=== PATIENT | female | born 1995 | race Caucasian/White ===

== ENCOUNTER 2016-08-23 20:38 | Emergency (ER) | payer OTHER ==
[2016-08-23] MEDS ORDERED: CLINDAMYCIN 150 MG CAP As Ordered ONE (21:45)
[2016-08-23] MEDS ORDERED: IBUPROFEN 600 MG TAB As Ordered ONE (21:45)
--- NOTE | 2016-08-23 22:00 | EDDOCDS ---
Physician Documentation [facility] Name: Ayala Núñez Age: 21 yrs Sex: Female : 1995 Arrival Date: 08/23/2016 Time: 20:38 Bed TR7 Private MD: Naida [facility] Disposition: 08/23/16 21:42 Discharged to Home/Self Care. Impression: Periapical abscess without sinus, Dental caries. - Condition is Stable. - Discharge Instructions: Dental Abscess, Dental Pain. - Prescriptions for Clindamycin HCl 300 mg Oral Capsule - take 1 capsule by ORAL route every 6 hours; 39 capsule. Ibuprofen 600 mg Oral Tablet - take 1 tablet by ORAL route every 6 hours As needed take with food; 30 tablet. - Medication Reconciliation, Local Pharmacy Hours, Dental Referral List form. - Follow up: Emergency Department; When: As needed; Reason: Fever > 102F, Worsening of conditions. Follow up: Private Physician; When: Call to arrange an appointment; Reason: Recheck today's complaints. - Problem is new. - Symptoms are unchanged. Historical: - Allergies: Amoxicillin; - Home Meds: 1. none - PMHx: none; - PSHx: none; - Social history: Smoking status: Patient uses tobacco products, current every day smoker. No barriers to communication noted, The patient speaks fluent Faroese, Speaks appropriately for age. - Family history: Not pertinent. - : The pt / caregiver states he / she is not on anticoagulants. Home medication list is obtained from the patient. - Exposure Risk Screening:: None identified. 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 3 in. (160.02 cm) (R); Pain 4/10; 21:46 BP 107 / 65; Pulse 54; Resp 20; Temp 99.1(TE); Pulse Ox 99% on R/A; Pain 0/10; jmv 20:40 Body Mass Index 19.49 (49.90 kg, 160.02 cm) gr2 MDM: 21:41 Ibuprofen 600 mg PO once ordered. ar2 21:41 Clindamycin 300 mg PO once ordered. ar2 Administered Medications: 21:50 Drug: Ibuprofen 600 mg [ibuprofen 600 mg tablet (1 tabs)] Route: PO; jf3 21:51 Drug: Clindamycin 300 mg [clindamycin 150 mg capsule (2 caps)] Route: PO; jf3 Signatures: Leopoldo Horvath PA-C PA-C ar2 Nasreen Anand RN RN dsf Elver Reyes RN RN jf3 MTDD
--- NOTE | 2016-08-23 22:00 | EDDOCDS ---
Nurse's Notes [facility] Name: Ayala Núñez Age: 21 yrs Sex: Female : 1995 Arrival Date: 08/23/2016 Time: 20:38 Bed TR7 Private MD: GABBY Pasacl Diagnosis: Periapical abscess without sinus;Dental caries Presentation: 08/23 20:50 Presenting complaint: Patient states: noticed a pimple on right gum line 2 days ago and dsf her jaw started to hurt yesterday. Adult Sepsis Screening: The patient does not have new or worsening altered mentation. Patient's respiratory rate is less than 22. Systolic blood pressure is greater than 100. Patient has a qSOFA score of 0- Negative Sepsis Screen. Suicide/Homicide risk assessment- the patient denies having any suicidal and/or homicidal ideations and does not present with any other emotional, behavioral or mental health complaints. Status: The patient is a dependent. Transition of care: patient was not received from another setting of care. 20:50 Acuity: MARGY Level 5 dsf 20:50 Method Of Arrival: Walkin/Carried/Asstd dsf Triage Assessment: 20:51 General: Appears in no apparent distress, Behavior is appropriate for age, cooperative. dsf Pain: Denies pain. HIV screening NA for this visit Offered previously. 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 none - PMHx: none; - PSHx: none; - Social history: Smoking status: Patient uses tobacco products, current every day smoker. No barriers to communication noted, The patient speaks fluent French, Speaks appropriately for age. - Family history: Not pertinent. - : The pt / caregiver states he / she is not on anticoagulants. Home medication list is obtained from the patient. - Exposure Risk Screening:: None identified. Screenin:55 Screening information is obtained from the patient. Fall risk: No risks identified. jf3 Assistance ADL's: requires no assistance with activities of daily living. Abuse/DV Screen: The patient / caregiver reports he/she is: not in a situation that causes fear, pain or injury. Nutritional screening: No deficits noted. Advance Directives: Currently, there is no health care proxy. There is no active DNR order. home support is adequate. Assessment: 21:55 General: Appears in no apparent distress, comfortable, Behavior is cooperative. Pain: jf3 Denies pain. Neurological: Level of Consciousness is awake, alert, Oriented to person, place, time. Cardiovascular: Capillary refill < 3 seconds. Respiratory: Airway is patent Respiratory effort is even, unlabored, Respiratory pattern is regular, symmetrical. Derm: Skin is pink, warm & dry. Vital Signs: 20:40 BP 123 / 66; Pulse 82; Resp 18 S; Temp 98.4(O); Pulse Ox 100% on R/A; Weight 49.9 kg gr2 (R); Height 5 ft. 3 in. (160.02 cm) (R); Pain 4/10; 21:46 BP 107 / 65; Pulse 54; Resp 20; Temp 99.1(TE); Pulse Ox 99% on R/A; Pain 0/10; jmv 20:40 Body Mass Index 19.49 (49.90 kg, 160.02 cm) gr2 Vitals: 20:40 Log In Time: August 23, 2016 at 20:40. gr2 ED Course: 20:40 Patient visited by Day Reeves. gr2 20:40 Naida [facility] is Private Physician. gr2 20:40 Patient moved to Waiting gr2 20:42 Patient visited by Day Reeves. gr2 20:42 Patient moved to Pre RCE gr2 20:51 Triage Initiated dsf 21:32 Patient moved to Triage 1 jf3 21:35 [facility] ar2 21:35 Darwin Rosado DO is Attending Physician. ar2 21:35 Patient visited by Leopoldo Horvath PA-C. ar2 21:46 Patient visited by Juvenal Harris PCA. jmv 21:55 The patient / caregiver is instructed regarding the plan of care and ED course. jf3 21:55 No IV's were initiated during this patient's visit. No procedures done that require jf3 assistance. 21:56 Patient moved to TR7 cz Administered Medications: 21:50 Drug: Ibuprofen 600 mg [ibuprofen 600 mg tablet (1 tabs)] Route: PO; jf3 21:51 Drug: Clindamycin 300 mg [clindamycin 150 mg capsule (2 caps)] Route: PO; jf3 Order Results: There are currently no results for this order. Outcome: 21:42 Discharge ordered by Provider. ar2 21:55 Discharge Assessment: Patient awake, alert and oriented x 3. No cognitive and/or jf3 functional deficits noted. Patient verbalized understanding of disposition instructions. patient administered narcotics - no. The following High Risk Discharge criteria are identified: None. Discharged to home ambulatory, with significant other. Condition: stable. Discharge instructions given to patient, significant other, Instructed on discharge instructions, follow up and referral plans. medication usage, Demonstrated understanding of instructions, medications, Pt was receptive of discharge instructions/ teaching. No special radiology studies were completed. Property :Personal belongings accompany Pt. 22:00 Patient left the ED. jf3 Signatures: Cristian Mcleod, RN RN Leopoldo Fields PA-C PA-C ar2 Nasreen Anand,RN RN christianof Day Reeves2 Elver Reyes RN RN jf3 Juvenal Harris, [employer] jmv MTDYessi
--- NOTE | 2016-08-26 11:52 | EDDOCDS ---
Physician Documentation [facility] Name: Ayala Núñez Age: 21 yrs Sex: Female : 1995 Arrival Date: 08/23/2016 Time: 20:38 Bed TR7 Private MD: Naida [facility] Disposition: 08/23/16 21:42 Discharged to Home/Self Care. Impression: Periapical abscess without sinus, Dental caries. - Condition is Stable. - Discharge Instructions: Dental Abscess, Dental Pain. - Prescriptions for Clindamycin HCl 300 mg Oral Capsule - take 1 capsule by ORAL route every 6 hours; 39 capsule. Ibuprofen 600 mg Oral Tablet - take 1 tablet by ORAL route every 6 hours As needed take with food; 30 tablet. - Medication Reconciliation, Local Pharmacy Hours, Dental Referral List form. - Follow up: Emergency Department; When: As needed; Reason: Fever > 102F, Worsening of conditions. Follow up: Private Physician; When: Call to arrange an appointment; Reason: Recheck today's complaints. - Problem is new. - Symptoms are unchanged. Historical: - Allergies: Amoxicillin; - Home Meds: 1. none - PMHx: none; - PSHx: none; - Social history: Smoking status: Patient uses tobacco products, current every day smoker. No barriers to communication noted, The patient speaks fluent Latvian, Speaks appropriately for age. - Family history: Not pertinent. - : The pt / caregiver states he / she is not on anticoagulants. Home medication list is obtained from the patient. - Exposure Risk Screening:: None identified. 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 3 in. (160.02 cm) (R); Pain 4/10; 21:46 BP 107 / 65; Pulse 54; Resp 20; Temp 99.1(TE); Pulse Ox 99% on R/A; Pain 0/10; jmv 20:40 Body Mass Index 19.49 (49.90 kg, 160.02 cm) gr2 MDM: 21:41 Ibuprofen 600 mg PO once ordered. ar2 21:41 Clindamycin 300 mg PO once ordered. ar2 : [facility] Payment Agreement was scanned into [employer] and attached to record. gj : Financial registration complete. gjb 08/24 08: T-Sheet-- Draft Copy was scanned into [employer] and attached to record. se Administered Medications: 08/23 21:50 Drug: Ibuprofen 600 mg [ibuprofen 600 mg tablet (1 tabs)] Route: PO; jf3 21:51 Drug: Clindamycin 300 mg [clindamycin 150 mg capsule (2 caps)] Route: PO; jf3 Signatures: Leopoldo Horvath PA-C PA-C ar2 Nasreen Anand RN RN Elver Godinez RN RN augustin3 Mirella White Sarah [facility] The chart was reviewed and I authenticate all verbal orders and agree with the evaluation and treatment provided.Attachments: : [facility] Payment Agreement b 08/24 08:41 T-Sheet-- Draft Copy [facility] Chart Complete MTDD
--- NOTE | 2016-08-26 11:52 | EDDOCDS ---
Physician Documentation [facility] Name: Ayala Núñez Age: 21 yrs Sex: Female : 1995 Arrival Date: 08/23/2016 Time: 20:38 Bed TR7 Private MD: Naida [facility] Disposition: 08/23/16 21:42 Discharged to Home/Self Care. Impression: Periapical abscess without sinus, Dental caries. - Condition is Stable. - Discharge Instructions: Dental Abscess, Dental Pain. - Prescriptions for Clindamycin HCl 300 mg Oral Capsule - take 1 capsule by ORAL route every 6 hours; 39 capsule. Ibuprofen 600 mg Oral Tablet - take 1 tablet by ORAL route every 6 hours As needed take with food; 30 tablet. - Medication Reconciliation, Local Pharmacy Hours, Dental Referral List form. - Follow up: Emergency Department; When: As needed; Reason: Fever > 102F, Worsening of conditions. Follow up: Private Physician; When: Call to arrange an appointment; Reason: Recheck today's complaints. - Problem is new. - Symptoms are unchanged. Historical: - Allergies: Amoxicillin; - Home Meds: 1. none - PMHx: none; - PSHx: none; - Social history: Smoking status: Patient uses tobacco products, current every day smoker. No barriers to communication noted, The patient speaks fluent Romanian, Speaks appropriately for age. - Family history: Not pertinent. - : The pt / caregiver states he / she is not on anticoagulants. Home medication list is obtained from the patient. - Exposure Risk Screening:: None identified. 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 3 in. (160.02 cm) (R); Pain 4/10; 21:46 BP 107 / 65; Pulse 54; Resp 20; Temp 99.1(TE); Pulse Ox 99% on R/A; Pain 0/10; jmv 20:40 Body Mass Index 19.49 (49.90 kg, 160.02 cm) gr2 MDM: 21:41 Ibuprofen 600 mg PO once ordered. ar2 21:41 Clindamycin 300 mg PO once ordered. ar2 : [facility] Payment Agreement was scanned into [employer] and attached to record. gj : Financial registration complete. gjb 08/24 08: T-Sheet-- Draft Copy was scanned into [employer] and attached to record. se Administered Medications: 08/23 21:50 Drug: Ibuprofen 600 mg [ibuprofen 600 mg tablet (1 tabs)] Route: PO; jf3 21:51 Drug: Clindamycin 300 mg [clindamycin 150 mg capsule (2 caps)] Route: PO; jf3 Signatures: Leopoldo Horvath PA-C PA-C ar2 Nasreen Anand RN RN Elver Godinez RN RN augustin3 Mirella White Sarah [facility] The chart was reviewed and I authenticate all verbal orders and agree with the evaluation and treatment provided.Attachments: : [facility] Payment Agreement b 08/24 08:41 T-Sheet-- Draft Copy [facility] Chart Complete MTDD
--- NOTE | 2016-08-26 11:52 | EDDOCDS ---
Nurse's Notes [facility] Name: Ayala Núñez Age: 21 yrs Sex: Female : 1995 Arrival Date: 08/23/2016 Time: 20:38 Bed TR7 Private MD: GABBY Pascal Diagnosis: Periapical abscess without sinus;Dental caries Presentation: 08/23 20:50 Presenting complaint: Patient states: noticed a pimple on right gum line 2 days ago and dsf her jaw started to hurt yesterday. Adult Sepsis Screening: The patient does not have new or worsening altered mentation. Patient's respiratory rate is less than 22. Systolic blood pressure is greater than 100. Patient has a qSOFA score of 0- Negative Sepsis Screen. Suicide/Homicide risk assessment- the patient denies having any suicidal and/or homicidal ideations and does not present with any other emotional, behavioral or mental health complaints. Status: The patient is a dependent. Transition of care: patient was not received from another setting of care. 20:50 Acuity: MARGY Level 5 dsf 20:50 Method Of Arrival: Walkin/Carried/Asstd dsf Triage Assessment: 20:51 General: Appears in no apparent distress, Behavior is appropriate for age, cooperative. dsf Pain: Denies pain. HIV screening NA for this visit Offered previously. 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 none - PMHx: none; - PSHx: none; - Social history: Smoking status: Patient uses tobacco products, current every day smoker. No barriers to communication noted, The patient speaks fluent Divehi, Speaks appropriately for age. - Family history: Not pertinent. - : The pt / caregiver states he / she is not on anticoagulants. Home medication list is obtained from the patient. - Exposure Risk Screening:: None identified. Screenin:55 Screening information is obtained from the patient. Fall risk: No risks identified. jf3 Assistance ADL's: requires no assistance with activities of daily living. Abuse/DV Screen: The patient / caregiver reports he/she is: not in a situation that causes fear, pain or injury. Nutritional screening: No deficits noted. Advance Directives: Currently, there is no health care proxy. There is no active DNR order. home support is adequate. Assessment: 21:55 General: Appears in no apparent distress, comfortable, Behavior is cooperative. Pain: jf3 Denies pain. Neurological: Level of Consciousness is awake, alert, Oriented to person, place, time. Cardiovascular: Capillary refill < 3 seconds. Respiratory: Airway is patent Respiratory effort is even, unlabored, Respiratory pattern is regular, symmetrical. Derm: Skin is pink, warm & dry. Vital Signs: 20:40 BP 123 / 66; Pulse 82; Resp 18 S; Temp 98.4(O); Pulse Ox 100% on R/A; Weight 49.9 kg gr2 (R); Height 5 ft. 3 in. (160.02 cm) (R); Pain 4/10; 21:46 BP 107 / 65; Pulse 54; Resp 20; Temp 99.1(TE); Pulse Ox 99% on R/A; Pain 0/10; jmv 20:40 Body Mass Index 19.49 (49.90 kg, 160.02 cm) gr2 Vitals: 20:40 Log In Time: August 23, 2016 at 20:40. gr2 ED Course: 20:40 Patient visited by Day Reeves. gr2 20:40 Naida [facility] is Private Physician. gr2 20:40 Patient moved to Waiting gr2 20:42 Patient visited by Day Reeves. gr2 20:42 Patient moved to Pre RCE gr2 20:51 Triage Initiated dsf 21:32 Patient moved to Triage 1 jf3 21:35 [facility]opold[facility] Horvath [facility]-C [facility]. ar2 21:35 Darwin Rosado DO is Attending Physician. ar2 21:35 Patient visited by Leopoldo Horvath PA-C. ar2 21:46 Patient visited by Juvenal Harris PCA. jmv 21:55 The patient / caregiver is instructed regarding the plan of care and ED course. jf3 21:55 No IV's were initiated during this patient's visit. No procedures done that require jf3 assistance. 21:56 Patient moved to TR7 cz 22:09 [facility] Payment Agreement was scanned into [employer] and attached to record. gjb 08/24 08:41 T-Sheet-- Draft Copy was scanned into [employer] and attached to record. seh Administered Medications: 08/23 21:50 Drug: Ibuprofen 600 mg [ibuprofen 600 mg tablet (1 tabs)] Route: PO; jf3 21:51 Drug: Clindamycin 300 mg [clindamycin 150 mg capsule (2 caps)] Route: PO; jf3 Order Results: There are currently no results for this order. Outcome: 21:42 Discharge ordered by Provider. ar2 21:55 Discharge Assessment: Patient awake, alert and oriented x 3. No cognitive and/or jf3 functional deficits noted. Patient verbalized understanding of disposition instructions. patient administered narcotics - no. The following High Risk Discharge criteria are identified: None. Discharged to home ambulatory, with significant other. Condition: stable. Discharge instructions given to patient, significant other, Instructed on discharge instructions, follow up and referral plans. medication usage, Demonstrated understanding of instructions, medications, Pt was receptive of discharge instructions/ teaching. No special radiology studies were completed. Property :Personal belongings accompany Pt. 22:00 Patient left the ED. jf3 Signatures: Cristian Mcleod, RN RN Leopoldo Fields, PA-C PA-C ar2 Nasreen Anand,RN RN Day Rincon gr2 Elver Reyes,RN RN jf3 Mirella White Sarah seh Vega, Jose, [employer]OMEO garces Chart Complete MTDYessi
== END 2016-08-23 22:00 | disposition home or self-care (01) ==
LOC: M ED 20:38
DX: K04.7 Periapical abscess without sinus (principal); K02.9 Dental caries, unspecified; Z88.1 Allergy status to other antibiotic agents; F17.210 Nicotine dependence, cigarettes, uncomplicated